=== PATIENT | female | born 1990 ===

== ENCOUNTER 2018-03-25 23:24 | Emergency (ER) | payer SELFPAY ==
[2018-03-25 23:25] VITALS: BMI 28.3
[2018-03-25 23:38] VITALS: BP 101/67; PULSE 86; RESP 20; TEMP 98.6; O2SAT 99
[2018-03-25] MEDS ORDERED: guaiFENesin-Codeine 100-10mg/5ml Syrup (10ml) UD PO ONE (23:53)
[2018-03-26] MEDS ORDERED: guaiFENesin 100 mg/5 ml Syrup UD ONE (00:03)
--- NOTE | 2018-03-26 00:11 | C.PDOC ---
History Of Present Illness 27 year old female presents to the ED c/o cough associated with subjective fever , sore throat and runny nose for the past 3 days. Patient denies chills, nausea , vomit, diarrhea, rash, recent travel, sick contacts. Time Seen by Provider: 03/25/18 23:33 Chief Complaint (Nursing): Cough, Cold, Congestion History Per: Patient History/Exam Limitations: no limitations Onset/Duration Of Symptoms: Days (3) Current Symptoms Are (Timing): Still Present Location Of Pain: Throat, Sinus/es Associated Symptoms: Fever, Sore Throat, Cough, Sinus Drainage. denies: Vomiting, Diarrhea Ear Symptoms: Bilateral: None Recent travel outside of the [place]: No Additional History Per: Patient Past Medical History Reviewed: Historical Data, Nursing Documentation, Vital Signs Vital Signs: Last Vital Signs Temp 98.6 F 03/25/18 23:32 Pulse 86 03/25/18 23:32 Resp 20 03/25/18 23:32 BP 101/67 03/25/18 23:32 Pulse Ox 99 03/26/18 00:40 - Medical History PMH: No Chronic Diseases Surgical History: Appendectomy - [facility] Procedures DELIVERY OF PRODUCTS OF CONCEPTION, EXTERNAL APPROACH (04/26/16) REPAIR PERINEUM MUSCLE, OPEN APPROACH (04/26/16) Family History: States: Unknown Family Hx - Social History Hx Alcohol Use: No Hx Substance Use: No - Immunization History Hx Tetanus Toxoid Vaccination: No Hx Influenza Vaccination: No Hx Pneumococcal Vaccination: No Review Of Systems Constitutional: Positive for: Fever. Negative for: Chills ENT: Positive for: Nose Discharge, Throat Pain Respiratory: Positive for: Cough. Negative for: Shortness of Breath Gastrointestinal: Negative for: Nausea, Vomiting, Diarrhea Skin: Negative for: Rash Physical Exam - Physical Exam Appears: Non-toxic, No Acute Distress Skin: Normal Color, Warm, Dry, No Rash Head: Atraumatic, Normacephalic Eye(s): bilateral: Normal Inspection Ear(s): Bilateral: Normal Nose: No Discharge Oral Mucosa: Moist Throat: Normal, No Erythema, No Exudate Neck: Normal ROM, Supple Chest: Symmetrical, No Tenderness Cardiovascular: Rhythm Regular, No Friction Rub, No Murmur Respiratory: Normal Breath Sounds, No Rales, No Rhonchi, No Wheezing Gastrointestinal/Abdominal: Soft, No Tenderness Extremity: Normal ROM, No Tenderness, No Swelling Neurological/Psych: Oriented x3, Normal Speech, Normal Motor Gait: Steady ED Course And Treatment O2 Sat by Pulse Oximetry: 99 (On RA) Pulse Ox Interpretation: Normal Progress Note: Plan: - Claritin 10 mg PO. - Prednisone 40 mg po. - guaifenesin/codeine 10 ml PO Disposition - Disposition Referrals: [facility] at [facility] [Outside] Disposition: HOME/ ROUTINE Disposition Time: 00:09 Condition: GOOD Additional Instructions: Follow up with the medical doctor within 1-3 days. Return if worsened. Prescriptions: Ibuprofen [Motrin] 1 tab PO TID PRN #30 tab PRN Reason: Pain Loratadine [Claritin] 10 mg PO DAILY #10 tab Promethazine/Codeine [Phenergan/Codeine Oral Syrup] 5 ml PO Q8 PRN #50 ml PRN Reason: Cough Instructions: Upper Respiratory Infection (ED) Forms: [facility] (Ukrainian), Work Excuse - Clinical Impression Clinical Impression: Upper respiratory infection - PA / TIME BROKER / Resident Statement MD/DO has reviewed & agrees with the documentation as recorded. - Scribe Statement The provider has reviewed the documentation as recorded by the Scribe Rusty Ruelas All medical record entries made by the Scribe were at my direction and personally dictated by me. I have reviewed the chart and agree that the record accurately reflects my personal performance of the history, physical exam, medical decision making, and the department course for this patient. I have also personally directed, reviewed, and agree with the discharge instructions and disposition.
== END 2018-03-26 00:14 | disposition home or self-care (01) ==
LOC: C.ER 23:24
DX: J06.9 Acute upper respiratory infection, unspecified (principal)

== ENCOUNTER 2018-04-19 23:49 | Emergency (ER) | payer OTHER ==
[2018-04-19 23:51] VITALS: BMI 28.3
[2018-04-20 00:05] VITALS: RESP 20; O2SAT 98
[2018-04-20] MEDS ORDERED: Sodium Chloride 0.9% 1,000 ML IV ONE ×2 (00:17)
--- NOTE | 2018-04-20 00:31 | C.PDOC ---
History Of Present Illness <Otilio Proctor - Last Filed: 04/20/18 02:23> <Jade Cameron - Last Filed: 04/21/18 13:34> 28 year old female presents to the ED for evaluation of fever associated with sore throat, some achiness that started this afternoon. Patient denies nausea, vomit, diarrhea, dysuria, hematuria, cough. (HiteshOtilio Hahn) History Per: Patient History/Exam Limitations: no limitations Onset/Duration Of Symptoms: Hrs Current Symptoms Are (Timing): Still Present Location Of Pain: Throat Sick Contacts (Context): None Associated Symptoms: Fever, Sore Throat, Myalgias. denies: Cough, Diarrhea Ear Symptoms: Bilateral: None Recent travel outside of the [place]: No Additional History Per: Patient <Otilio Proctor - Last Filed: 04/20/18 02:23> <Jade Cameron - Last Filed: 04/21/18 13:34> Chief Complaint (Nursing): Flu-like Symptoms Past Medical History Reviewed: Historical Data, Nursing Documentation, Vital Signs - Medical History PMH: No Chronic Diseases Surgical History: Appendectomy Family History: States: Unknown Family Hx - Social History Hx Alcohol Use: No Hx Substance Use: No - Immunization History Hx Tetanus Toxoid Vaccination: No Hx Influenza Vaccination: No Hx Pneumococcal Vaccination: No <Otilio Proctor - Last Filed: 04/20/18 02:23> Vital Signs: Last Vital Signs Temp 99.2 F 04/20/18 02:50 Pulse 100 H 04/20/18 02:50 Resp 20 04/20/18 02:50 BP 110/70 04/20/18 02:50 Pulse Ox 98 04/20/18 02:50 - [facility] Procedures DELIVERY OF PRODUCTS OF CONCEPTION, EXTERNAL APPROACH (04/26/16) REPAIR PERINEUM MUSCLE, OPEN APPROACH (04/26/16) Review Of Systems Constitutional: Positive for: Fever, Malaise. Negative for: Chills ENT: Positive for: Throat Pain. Negative for: Nose Discharge, Nose Congestion Respiratory: Negative for: Cough, Shortness of Breath Gastrointestinal: Negative for: Nausea, Vomiting Genitourinary: Negative for: Dysuria, Hematuria Musculoskeletal: Negative for: Neck Pain, Back Pain Skin: Negative for: Rash <Proctor,Otilio R - Last Filed: 04/20/18 02:23> Physical Exam - Physical Exam Appears: Non-toxic, No Acute Distress Skin: Normal Color, Warm, Dry Head: Atraumatic, Normacephalic Eye(s): bilateral: Normal Inspection Ear(s): Bilateral: Normal Nose: No Discharge Oral Mucosa: Moist Throat: No Erythema, No Exudate, Other (congested pharynx) Neck: Normal ROM, No Midline Cervical Tenderness, Supple Chest: Symmetrical Cardiovascular: Rhythm Regular Respiratory: Normal Breath Sounds, No Rales, No Rhonchi, No Wheezing Gastrointestinal/Abdominal: Soft, No Tenderness, No Guarding, No Rebound Back: Normal Inspection Extremity: Normal ROM, No Tenderness, No Swelling Neurological/Psych: Oriented x3, Normal Speech Gait: Steady <Otilio Proctor - Last Filed: 04/20/18 02:23> ED Course And Treatment - Laboratory Results Result Diagrams: 04/20/18 00:46 04/20/18 00:46 O2 Sat by Pulse Oximetry: 98 (ON RA) Pulse Ox Interpretation: Normal <Otilio Proctor - Last Filed: 04/20/18 02:23> - Laboratory Results Result Diagrams: 04/20/18 00:46 04/20/18 00:46 <Jade Cameron - Last Filed: 04/21/18 13:34> Medical Decision Making <Otilio Proctor R - Last Filed: 04/20/18 02:23> <Jade Cameron - Last Filed: 04/21/18 13:34> Medical Decision Making: Impression: fever, sore throat Plan: * Labs * IV fluids * Toradol 30 mg IVP * Tylenol 975 mg PO * Influenza A B * Rapid Strep Group * UA (Otilio Proctor R) 04/21/18 pt made aware strep group a positive, rx for pen-vk called into [facility] for pt. pt advised to stop c[pro. (Jade Cameron) Disposition Counseled Patient/Family Regarding: Diagnosis - Disposition Disposition Time: 02:24 - POA Present On Arrival: None <Otilio Proctor R - Last Filed: 04/20/18 02:23> <Jade Cameron - Last Filed: 06/24/18 13:34> - Disposition Referrals: at [facility] [Outside] Disposition: HOME/ ROUTINE Condition: STABLE Prescriptions: Ciprofloxacin [Cipro] 1 tab PO BID #14 tab Ibuprofen [Motrin Tab] 600 mg PO Q6 #20 tab Instructions: Urinary Tract Infections in Adults, Fever, Adult (DC) Forms: [facility] (Latvian) - Clinical Impression Clinical Impression: UTI (urinary tract infection), Fever - Scribe Statement The provider has reviewed the documentation as recorded by the Scribe <Otilio Proctor - Last Filed: 04/20/18 02:23> <Jade Cameron - Last Filed: 04/21/18 13:34> - Scribe Statement Rusty Ruelas All medical record entries made by the Scribe were at my direction and personally dictated by me. I have reviewed the chart and agree that the record accurately reflects my personal performance of the history, physical exam, medical decision making, and the department course for this patient. I have also personally directed, reviewed, and agree with the discharge instructions and disposition. (Otilio Proctor)
[2018-04-20] MEDS ORDERED: Sodium Chloride 0.9% 1,000 ML ONE (00:35)
[2018-04-20 00:48] LABS: SQUAMOUS EPITHIAL 12 /hpf (0-5); URINE BACTERIA RARE (<OCC); URINE BILIRUBIN NEGATIVE (NEGATIVE); URINE CLARITY Hazy (Clear); URINE COLOR Yellow (YELLOW); URINE GLUCOSE (UA) NORMAL (Normal); URINE LEUKOCYTE ESTERASE TRACE Leu/uL (Negative); URINE PROTEIN NEGATIVE (NEGATIVE); URINE UROBILINOGEN NORMAL mg/dL (0.2-1.0)
[2018-04-20 00:49] LABS: HCG,QUALITATIVE URINE NEGATIVE (NEGATIVE)
[2018-04-20 00:50] LABS: URINE BLOOD 2+ (NEGATIVE)
[2018-04-20 00:55] LABS: BASO # 0.1 K/uL (0.0-0.2); BASO % 0.7 % (0.0-2.0); EOS % 0.1 % (0.0-4.0); HEMOGLOBIN 12.2 g/dL (11.0-16.0); LYMPH # 1.1 K/uL (1.0-4.3); LYMPH % 8.9 % (20.0-40.0); MEAN CELL VOLUME 82.5 fL (81.0-99.0); MEAN CORPUSCULAR HEMOGLOBIN 27.9 pg (27.0-31.0); MEAN CORPUSCULAR HGB CONC 33.8 g/dL (33.0-37.0); MEAN PLATELET VOLUME 8.2 fL (7.2-11.7); MONO # 0.5 K/uL (0.0-0.8); MONO % 4.2 % (0.0-10.0); NEUT # 10.4 K/uL (1.8-7.0); NEUT % 86.1 % (50.0-75.0); PLATELET COUNT 207 K/uL (130-400); RBC 4.36 Mil/uL (3.80-5.20); RED CELL DISTRIBUTION WIDTH 15.4 % (11.5-14.5)
[2018-04-20] MEDS ORDERED: Ciprofloxacin 400mg/200ml D5W 400 MG/200 ML BAG IVPB STA (01:05)
[2018-04-20 01:19] LABS: ALB/GLOB RATIO 1.3 (1.0-2.1); ALBUMIN 4.2 g/dL (3.5-5.0); ALT/SGPT 27 U/L (9-52); AST/SGOT 18 U/L (14-36); BLOOD UREA NITROGEN 12 mg/dL (7-17); CALCIUM 8.6 mg/dl (8.6-10.4); GFR AFRICAN-AMERICAN > 60; GFR NON-AFRICAN AMERICAN > 60
[2018-04-20] MEDS ORDERED: Ciprofloxacin 400mg/200ml D5W 400 MG/200 ML BAG IVPB ONE (01:19)
[2018-04-20 02:33] LABS: BANDS 4 % (0-2); BASOPHIL 1 % (0-2); LYMPHOCYTE 6 % (20-40); MONOCYTE 8 % (0-10); NEUTROPHIL 81 % (50-75); PLATELET ESTIMATE NORMAL (NORMAL); TOTAL CELLS COUNTED 100
[2018-04-20 02:52] VITALS: BP 110/70; PULSE 100; TEMP 99.2
== END 2018-04-20 02:50 | disposition home or self-care (01) ==
LOC: C.ER 23:49
DX: N39.0 Urinary tract infection, site not specified (principal); R50.9 Fever, unspecified
CPT/HCPCS: 80053; 81001; 84703; 85025; 87070; 87086; 87430; 87804; 96365; 96375; 99284; J0744; J1885; J7030

== ENCOUNTER 2018-05-12 08:30 | Emergency (ER) | payer OTHER ==
[2018-05-12 08:34] VITALS: BMI 25.6
[2018-05-12 08:44] VITALS: O2SAT 100
--- NOTE | 2018-05-12 08:57 | C.PDOC ---
History Of Present Illness 28 year old female presents to ED for evaluation of pelvic pain since last night. LMP was yesterday "my period hurts". Denies UTI symptoms, fever, nausea, vomiting. Denies taking any pain medications. PELVIC PAIN SINCE LAST NIGHT. LMP YEST "MY PERIOD HURTS". NO UTI SX, FEVER, NV. NO PAIN MEDS TRIED EXAM MILD DIST NONTOXIC ABD +SUPRAPUB TEND SOFT NO R/G Time Seen by Provider: 05/12/18 08:45 Chief Complaint (Nursing): Abdominal Pain History Per: Patient History/Exam Limitations: no limitations Onset/Duration Of Symptoms: Days (1) Current Symptoms Are (Timing): Still Present Quality Of Discomfort: "Pain" Associated Symptoms: denies: Nausea, Vomiting, Urinary Symptoms Recent travel outside of the [place]: No Additional History Per: Patient Past Medical History Reviewed: Historical Data, Nursing Documentation, Vital Signs Vital Signs: Last Vital Signs Temp 99.1 F 05/12/18 08:34 Pulse 81 05/12/18 08:34 Resp 16 05/12/18 08:34 BP 101/69 05/12/18 08:34 Pulse Ox 100 05/12/18 09:20 Surgical History: Appendectomy - [facility] Procedures DELIVERY OF PRODUCTS OF CONCEPTION, EXTERNAL APPROACH (04/26/16) REPAIR PERINEUM MUSCLE, OPEN APPROACH (04/26/16) Family History: States: Unknown Family Hx - Social History Hx Alcohol Use: No Hx Substance Use: No - Immunization History Hx Tetanus Toxoid Vaccination: No Hx Influenza Vaccination: No Hx Pneumococcal Vaccination: No Review Of Systems Except As Marked, All Systems Reviewed And Found Negative. Constitutional: Negative for: Fever, Chills Cardiovascular: Negative for: Chest Pain, Palpitations Respiratory: Negative for: Cough, Shortness of Breath Gastrointestinal: Positive for: Abdominal Pain. Negative for: Nausea, Vomiting Genitourinary: Positive for: Pelvic Pain. Negative for: Dysuria, Frequency, Hematuria Musculoskeletal: Negative for: Back Pain Physical Exam - Physical Exam Appears: Non-toxic, Other (mild distress) Skin: Normal Color, Warm, Dry Head: Atraumatic, Normacephalic Eye(s): bilateral: Normal Inspection Oral Mucosa: Moist Neck: Supple Cardiovascular: Rhythm Regular Respiratory: Normal Breath Sounds, No Rales, No Rhonchi, No Wheezing Gastrointestinal/Abdominal: Soft, Tenderness (suprapubic), No Guarding, No Rebound Back: No CVA Tenderness Extremity: Normal ROM Neurological/Psych: Oriented x3, Normal Speech ED Course And Treatment O2 Sat by Pulse Oximetry: 100 (RA) Pulse Ox Interpretation: Normal Medical Decision Making Medical Decision Making: Plan: Upreg Urinalysis Tylenol Disposition Counseled Patient/Family Regarding: Studies Performed, Diagnosis, Need For Followup, Rx Given - Disposition Referrals: [facility] [Outside] [facility] [Outside] Disposition: HOME/ ROUTINE Disposition Time: 10:08 Condition: IMPROVED Prescriptions: Ibuprofen [Motrin] 600 mg PO Q6 #30 tab Instructions: Menstrual Cramps (DC) Forms: [facility] (Polish) - Clinical Impression Clinical Impression: Menstrual cramp - Scribe Statement The provider has reviewed the documentation as recorded by the Scribe KP All medical record entries made by the Scribe were at my direction and personally dictated by me. I have reviewed the chart and agree that the record accurately reflects my personal performance of the history, physical exam, medical decision making, and the department course for this patient. I have also personally directed, reviewed, and agree with the discharge instructions and disposition.
[2018-05-12 09:53] LABS: SQUAMOUS EPITHIAL < 1 /hpf (0-5); URINE BILIRUBIN NEGATIVE (NEGATIVE); URINE BLOOD 3+ (NEGATIVE); URINE CLARITY Hazy (Clear); URINE COLOR Yellow (YELLOW); URINE GLUCOSE (UA) NORMAL (Normal); URINE LEUKOCYTE ESTERASE NEG Leu/uL (Negative); URINE PROTEIN NEGATIVE (NEGATIVE); URINE UROBILINOGEN NORMAL mg/dL (0.2-1.0)
[2018-05-12 10:27] VITALS: BP 90/59; PULSE 85; RESP 20; TEMP 98.4
== END 2018-05-12 10:29 | disposition home or self-care (01) ==
LOC: C.ER 08:30
DX: N94.6 Dysmenorrhea, unspecified (principal)
CPT/HCPCS: 81001; 96372; 99285; J1885

== ENCOUNTER 2018-12-20 13:08 | Outpatient (CLI) | payer OTHER | END 2018-12-20 13:09 | disposition home or self-care (01) | LOC: C.LAB 13:08 | DX: N85.00 Endometrial hyperplasia, unspecified (principal) ==

== ENCOUNTER 2018-12-25 07:02 | Day surgery (SDC) | payer OTHER ==
[2018-12-24 06:56] VITALS: BMI 27.4
[2018-12-25] MEDS ORDERED: Propofol 10 mg/ml Inj (20 ML) ONE (09:05)
[2018-12-25] MEDS ORDERED: Midazolam 2 MG/2 ML VIAL ONE (09:05)
[2018-12-25] MEDS ORDERED: HYDROmorphone 0.5 mg/0.5 ml ISec IVP PRN (09:37)
[2018-12-25 10:06] VITALS: RESP 18; O2SAT 100
[2018-12-25 11:18] VITALS: BP 93/64; PULSE 73; TEMP 98
--- NOTE | 2018-12-25 20:35 | OP ---
PROCEDURE DATE: 12/25/2018 PREOPERATIVE DIAGNOSIS: A 28-year-old 2, para 2, with prolonged menstruation. POSTOPERATIVE DIAGNOSIS: A 28-year-old 2, para 2, with prolonged menstruation. SURGEON: Jon Alvarez MD ENERGY CONSERVATION DIRECTOR: None. TYPE OF ANESTHESIA: General. ANESTHESIOLOGIST: Naseem Carpenter DO COMPLICATIONS: None. ESTIMATED BLOOD LOSS: 20 mL. PROCEDURE PERFORMED: Dilatation and curettage, hysteroscopy. DESCRIPTION OF PROCEDURE: After informed consent was obtained, the patient was brought to the operating room, placed on the table where general anesthesia was given. Once the anesthesia was given, the patient was prepped and draped in normal sterile fashion. Examination found the uterus to be about 6 weeks' size. No pelvic or adnexal mass. The anterior lip of cervix was grasped with a tenaculum. Gentle dilatation of the cervix was done. Hysteroscope was introduced and found no polyp. Decision was made and the curettage was done. Sharp curettage was done from the inside of the uterus, it was sent to the pathology. Then ECC was sent to the Pathology. Hysteroscope looked okay and it was hemostatic, no bleeding. After this procedure, tenaculum was taken out. The patient tolerated the procedure well. All lap, sponge, and instrument counts were correct x2. Jon Alvarez MD
== END 2018-12-25 11:35 | disposition home or self-care (01) ==
LOC: C.SDS 07:02
PROVIDERS: ATTEND Obstetrics & Gynecology
DX: N92.0 Excessive and frequent menstruation with regular cycle (principal); N85.00 Endometrial hyperplasia, unspecified
CPT/HCPCS: 58558; 88305; J1100; J2250; J2405; J2704; J3010